=== PATIENT | female | born 1980 | race Caucasian/White ===

== ENCOUNTER 2017-01-22 13:38 | Emergency (ER) | payer MEDICARE, OTHER ==
--- NOTE | ~2017-01-22 | EKG ---
PATIENT: RAMAKRISHNA VALENZUELA UNIT #: [id number] Ventricular Rate: 107 BPM Atrial Rate: 107 BPM P-R Interval: 188 ms QRS Duration: 70 ms Q-T Interval: 324 ms QTC Calculation(Bezet): 432 ms P [place]: 19 degrees Calculated R [place]: 0 degrees Calculated T [place]: 19 degrees Diagnosis Line: Sinus tachycardia Diagnosis Line: Possible Left atrial enlargement Diagnosis Line: Borderline ECG Diagnosis Line: When compared with ECG of 20-DEC-2013 00:51, Diagnosis Line: No significant change was found Diagnosis Line: Confirmed by DANELLE KWON MD ([id number]) on Diagnosis Line: 01/23/2017 3:41:11 PM INTERPRETING MD: CHER SILVA
[~2017-01-22 13:38] MED LIST: ALAVERT PO; ALAVERT10 MG PO; LEVAQUIN PO; LEVOTHYROXINE50 MCG PO; LORTAB 5/500 TA1 TA1 PO; METRONIDAZOLE PO; NAPROXEN PO; PEPCID PO; PHENERGAN25 MG PO; PRILOSEC20 M1 PO; SYNTHROID PO; VOLTAREN75 MG PO; ZANTAC PO
[2017-03-29] MEDS ORDERED: SYNTHROID PO (14:00)
[2017-03-29] MEDS ORDERED: PRILOSEC PO (14:01)
== END 2017-01-22 14:25 | disposition home or self-care (01) ==
LOC: SED 13:38
DX: R07.9 Chest pain, unspecified (principal); R03.0 Elevated blood-pressure reading, without diagnosis of hypertension; Z79.899 Other long term (current) drug therapy
CPT/HCPCS: 93005; 99283

== ENCOUNTER → 2017-03-29 | Day surgery (SDC) | payer MEDICARE, OTHER ==
[~2017-03-29] MED LIST changes: +PRILOSEC PO
--- NOTE | ~2017-03-29 | OR ---
Unit #: [id number] #: [id number] Patient: RAMAKRISHNA VALENZUELA [id number] [address] [address] [id number] O MR#: [id number] NAME: RAMAKRISHNA VALENZUELA. ROOM: Date of Procedure: 03/29/2017 Admission Date: 03/29/2017 Surgeon: Bud Fam M.D. : 1980 Attending Physician: Bud Fam M.D. Primary Care Physician: Anant Miranda M.D. OPERATIVE REPORT PREOPERATIVE DIAGNOSES 1. Reflux symptoms. 2. Screening colonoscopy. 3. Family history of first-degree relative with colon cancer. POSTOPERATIVE DIAGNOSES 1. Reflux symptoms. 2. Screening colonoscopy. 3. Family history of first-degree relative with colon cancer. PROCEDURES PERFORMED 1. Esophagogastroduodenoscopy. 2. Biopsy of antrum for Helicobacter pylori testing. 3. Colonoscopy to cecum. ANESTHESIA Monitored anesthesia care. FINDINGS The patient was found on upper endoscopy to have a medium sized hiatal hernia. The patient was also found to have moderate duodenitis, mild gastritis, and distal esophagitis. The patient had normal colon to cecum. SPECIMENS Sent to pathology. COMPLICATIONS None apparent. CONDITION The patient tolerated the procedure well. INDICATIONS FOR PROCEDURE The patient is a 36-year-old female, whose father was diagnosed with colon cancer in his early 40s. She presents at this time for screening colonoscopy. In addition, she has had significant reflux symptoms and we recommend proceeding with upper endoscopy as well. DESCRIPTION OF PROCEDURE After obtaining informed consent from the patient's parents, the patient was brought to the endoscopy suite and after adequate monitored anesthesia care, had the endoscope placed through the mouth into the upper esophagus Unit #: [id number] #: [id number] Patient: RAMAKRISHNA VALENZUELA under direct vision. It was slowly advanced to the second and third portion of the duodenum without difficulty with the lumen always in view. In the duodenal bulb and second portion, had moderate duodenitis present. The pylorus opened normally. There was some mild distal gastritis present and a biopsy was obtained for Helicobacter pylori testing. On retroflexion back to the GE junction, the patient was found to have a medium-sized hiatal hernia. No other abnormalities were found in the proximal third, middle third, or incisura. On pulling back above the GE junction, there was significant distal esophagitis. There was no stenosis, stricture, or neoplasm seen. The remaining portion of the esophagus was within normal limits. Laryngeal structures were grossly normal as viewed from above. At this point in time, the colonoscope was placed through the anus and slowly advanced to the level of the cecum without difficulty with lumen always in view. The cecum was normal as was the ileocecal valve. The ascending colon was normal as was the hepatic flexure, transverse colon, splenic flexure, descending colon, sigmoid colon, and rectum. There was some moderate stool present in the rectum. No gross abnormality was seen. No diverticula were seen. We were unable to retroflex in the rectum to the anorectal junction. On pulling back through the anal canal, there was no obvious abnormality. On digital examination, there was good sphincter tone and no palpable abnormality. The patient tolerated the procedure well and went from the endoscopy suite to recovery area in stable condition. RECOMMENDATIONS Gastroesophageal reflux sheet given. Prescription for omeprazole, high-fiber diet, lots of liquids, tucks or wipes p.r.n. Repeat colonoscopy in 3 years. Dictated by... Howard Aguirre/daren TD: 03/29/2017 12:07 JOB #: [id number] CC: [facility] OPERATIVE REPORT Page 1 of 1 X Bud Fam MD PROCEDURE OPERATIVE NOTE
== END | disposition home or self-care (01) ==
LOC: COPS 08:43
DX: Z12.11 Encounter for screening for malignant neoplasm of colon (principal); K44.9 Diaphragmatic hernia without obstruction or gangrene; K29.80 Duodenitis without bleeding; K29.70 Gastritis, unspecified, without bleeding; K21.9 Gastro-esophageal reflux disease without esophagitis; E03.9 Hypothyroidism, unspecified; Z87.440 Personal history of urinary (tract) infections; Z80.0 Family history of malignant neoplasm of digestive organs; Z79.899 Other long term (current) drug therapy; Z90.49 Acquired absence of other specified parts of digestive tract; Z98.890 Other specified postprocedural states
CPT/HCPCS: 43239; G0105; 84703; 87077; J2250